=== PATIENT | male | born 1965 | race Hispanic/Latino ===

== ENCOUNTER 2021-03-07 17:01 | Emergency (ER) | payer SELFPAY ==
[2021-03-07] MEDS ORDERED: Ondansetron 4 MG Tab.DIS PO ONE (17:17)
[2021-03-07] MEDS ORDERED: Acetaminophen/HYDROcodone 325-5 MG Tab PO ONE ×2 (17:17→20:16)
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
[2021-03-07] MEDS ORDERED: Sodium Chloride 0.9% 10 ML Syringe FLUSH PRN (18:09)
[2021-03-07] MEDS ORDERED: Morphine 2 MG/ML SYRINGE IVPUSH ONE ×2 (18:49→18:51)
--- NOTE | 2021-03-08 11:22 | CR ---
Chest: Frontal view of the chest was obtained. Comparison: No prior chest x-ray is available. Heart size and mediastinum are within normal limits. Lungs are clear. Slight degenerative spurring is seen within the spine. No definite acute osseous abnormality is appreciated. Impression: 1. Nothing acute is seen on frontal chest x-ray. Diagnostic code #2
--- NOTE | 2021-03-08 11:40 | CT ---
Head CT Technique: Multiple axial sections through the brain were obtained. Reconstructed coronal and sagittal images were obtained. Comparison: No prior intracranial imaging is available. Findings: Large soft tissue hematoma is seen anteriorly. Mild mucosal thickening is seen within both maxillary sinuses. Ventricles along with basal cisterns and sulci over the convexities are within normal limits. No abnormal parenchymal densities are seen with no hemorrhage. No evidence of intracranial hemorrhage is seen. No midline shift or mass-effect is seen. Bone window settings were reviewed. No acute calvarial abnormality is seen. Visualized mastoid sinuses are clear. Impression: 1. Prominent soft tissue hematoma within the anterior scalp. 2. No acute intracranial abnormality is seen. Diagnostic code #2 I agree with preliminary report from [facility], finalized on 03/07/21, 6:59 PM HEMATOLOGY SUPERVISOR
--- NOTE | 2021-03-08 11:46 | CT ---
CT cervical spine Technique: Multiple axial sections through the cervical spine were obtained. Reconstructed coronal and sagittal images were obtained. Comparison: No prior cervical spine imaging is available. Findings: Fracture is seen within the dens of C2. There is mild displacement in an anterior to posterior direction measuring approximately 3.2 mm. Mild anterior soft tissue swelling is noted as well as increased density posterior to the fracture line compatible with mild amount of blood. Detached bony density is noted off the superior dens of C1 which is a normal variant. Moderate to severe disc space narrowing is seen at C3-4, C4-5, C5-6 with fusion at C6-7. Mild degenerative apophyseal change is seen throughout the cervical spine. Moderate bilateral neural foraminal stenosis is seen at C4-5. Moderate bilateral neural foraminal stenosis noted at C5-6. Mild right-sided neural foraminal stenosis is noted at C6-7. No discrete central canal stenosis is seen. No additional fracture is seen. Impression: 1. Mildly displaced fracture involving the dens of C2. Mild amount of blood is seen posteriorly. Anterior soft tissue swelling is noted. 2. Degenerative change as noted above. Diagnostic code #5 I agree with preliminary report from [facility], finalized on 03/07/21, 6:49 PM PHYSICAL MEDICINE PHYSICIAN, code 1
== END 2021-03-07 21:20 ==
LOC: JD.ED 17:01
DX: S12.101A Unspecified nondisplaced fracture of second cervical vertebra, initial encounter for closed fracture (principal); S00.03XA Contusion of scalp, initial encounter; Z20.822 Contact with and (suspected) exposure to COVID-19; Z72.0 Tobacco use; V59.9XXA Occupant (driver) (passenger) of pick-up truck or van injured in unspecified traffic accident, initial encounter; Y92.410 Unspecified street and highway as the place of occurrence of the external cause
CPT/HCPCS: 36415; 70450; 71045; 72125; 85025; 87635; 96374; 96376; 99285; A9270; J2270; U0002

== ENCOUNTER 2022-08-23 10:04 | Emergency (ER) | payer SELFPAY ==
[2022-08-23] MEDS ORDERED: Sodium Chloride 0.9% 10 ML Syringe FLUSH PRN (11:10)
[2022-08-23] MEDS ORDERED: Sodium Chloride 0.9% 1,000 ML IV SCH (11:15)
[2022-08-23 13:19] LABS: BASOPHILS ABSOLUTE AUTO 0.02 K/mm3 (0.01-0.08); BASOPHILS PERCENT AUTO 0.2 % (0.1-1.2); EOSINOPHILS ABSOLUTE AUTO 0.04 K/mm3 (0.04-0.54); EOSINOPHILS PERCENT AUTO 0.5 (0.8-7.0); HEMATOCRIT 40.7 % (40.1-51.0); HEMOGLOBIN 13.6 gm/dl (13.7-17.5); IMMATURE GRAN ABSOLUTE AUTO 0.01 K/mm3 (0.00-0.10); IMMATURE GRAN PERCENT AUTO 0.1 % (<=1.0); LYMPHOCYTES ABSOLUTE AUTO 1.86 K/mm3 (1.32-3.57); MEAN CORPUSCULAR HEMOGLOBIN 31.6 pg (25.7-32.2); MEAN CORPUSCULAR HGB CONC 33.4 g/dl (32.2-35.5); MEAN CORPUSCULAR VOLUME 94.7 fl (79.0-92.2); MEAN PLATELET VOLUME 10.4 fl (9.4-12.3); MONOCYTES ABSOLUTE AUTO 0.47 K/mm3 (0.30-0.82); MONOCYTES PERCENT AUTO 5.8 % (5.3-12.2); NEUTROPHILS PERCENT AUTO 70.4 % (34.0-67.9); PLATELET COUNT,PLT 142 K/mm3 (163-337)
[2022-08-23 13:47] LABS: ALBUMIN 3.6 g/dl (3.4-5.0); ANION GAP 12.4 (5-15); BILIRUBIN TOTAL 0.4 mg/dL (0.2-1.0); BUN/CREATININE RATIO 18.9 (14-18); CALCIUM 8.4 mg/dL (8.5-10.1); CREATININE 0.9 mg/dL (0.7-1.3); EST CRCL DRUG DOSING (CG) 94.08 mL/min; MAGNESIUM 1.4 mg/dL (1.8-2.4); POTASSIUM,K 4.4 mEq/L (3.5-5.1); PROTEIN TOTAL,TP 7.3 g/dl (6.4-8.2)
== END 2022-08-23 14:50 | disposition home or self-care (01) ==
LOC: JD.ED 10:04
DX: R42 Dizziness and giddiness (principal); Z72.0 Tobacco use
CPT/HCPCS: 36415; 70450; 71045; 80053; 83735; 84484; 85025; 93005; 96360; 99284; J3490; J7030; 93010

== ENCOUNTER 2025-01-07 17:25 | Emergency (ER) | payer SELFPAY ==
[2025-01-07 18:35] LABS: BASOPHILS ABSOLUTE AUTO 0.1 K/mm3 (0.0-0.2); BASOPHILS PERCENT AUTO 1.1 % (0.0-1.0); EOSINOPHILS ABSOLUTE AUTO 0.0 K/mm3 (0.0-0.4); EOSINOPHILS PERCENT AUTO 0.4 % (0.0-6.0); IMMATURE GRAN ABSOLUTE AUTO 0.02 K/mm3 (0.00-0.05); IMMATURE GRAN PERCENT AUTO 0.3 % (0.0-0.4); LYMPHOCYTES ABSOLUTE AUTO 2.7 K/mm3 (1.0-4.8); LYMPHOCYTES PERCENT AUTO 39.1 % (24.0-44.0); MEAN PLATELET VOLUME 10.4 fl (9.4-12.4); MONOCYTES ABSOLUTE AUTO 0.4 K/mm3 (0.0-0.8); MONOCYTES PERCENT AUTO 5.6 % (0.0-8.0); NEUTROPHILS ABSOLUTE AUTO 3.7 K/mm3 (1.8-7.7); NEUTROPHILS PERCENT AUTO 53.5 % (41.0-71.0); NRBC ABSOLUTE 0.00 (0.00-0.02); NRBC PERCENT 0.0 % (0.0-0.2); PLATELET COUNT,PLT 154 K/mm3 (150-400); RED BLOOD CELL COUNT 3.94 M/mm3 (4.52-5.90); WHITE BLOOD CELL COUNT,WBC 6.98 K/mm3 (3.9-11.3)
[2025-01-07 19:09] LABS: A/G RATIO 0.8 (1-2); ALANINE AMINOTRANSFERASE,ALT 100.0 U/L (16-63); ASPARTATE AMNIOTRANSFERASE,AST 148.0 U/L (15-37); BILIRUBIN TOTAL 0.5 mg/dL (0.2-1.0); BLOOD UREA NITROGEN,BUN 13.0 mg/dL (7-18); CARBON DIOXIDE,CO2 26.0 mEq/L (21-32); CHLORIDE,CL 107.0 mEq/L (98-107); CREATININE 1.1 mg/dL (0.7-1.3); EST CRCL DRUG DOSING (CG) 74.66 mL/min; ESTIMATED GFR 77.0 mL/min (>60); ETHANOL BLOOD MEDICAL 0.34 gm% (0.00); GLUCOSE RANDOM 153.0 mg/dL (70-99); POTASSIUM,K 3.8 mEq/L (3.5-5.1); PROTEIN TOTAL,TP 7.5 g/dl (6.4-8.2); SODIUM,NA 145.0 mEq/L (136-145); TSH 1.958 uIU/mL (0.358-3.74)
[2025-01-07 19:35] LABS: METHADONE SCREEN, URINE NEGATIVE (CUT0FF=200); METHAMPHETAMINES SCREEN, URINE NEGATIVE (CUTOFF=500); OXYCODONE SCREEN,URINE NEGATIVE (CUT0FF=100); THC SCREEN,URINE 20 NG/ML NEGATIVE (CUTOFF=50)
[2025-01-07 19:51] LABS: BUPRENORPHINE SCREEN,URINE NEGATIVE (CUTOFF=10)
[2025-01-07 19:54] LABS: AMPHETAMINES SCREEN, URINE NEGATIVE (CUTOFF=500)
[2025-01-07] MEDS ORDERED: Sodium Chloride 0.9% 10 ML Syringe FLUSH PRN (20:37)
[2025-01-07] MEDS: LORazepam 2 MG/ML SDV IVPUSH ONE ×2 (21:01→22:28)
[2025-01-07] MEDS: Ondansetron 4 MG/2 ML SDV IVPUSH ONE (21:07)
== END 2025-01-08 02:59 ==
LOC: JD.ED 17:25
DX: F10.129 Alcohol abuse with intoxication, unspecified (principal); S00.31XA Abrasion of nose, initial encounter; E11.9 Type 2 diabetes mellitus without complications; F17.200 Nicotine dependence, unspecified, uncomplicated; W10.9XXA Fall (on) (from) unspecified stairs and steps, initial encounter
CPT/HCPCS: 36415; 70450; 72125; 80053; 80143; 80179; 80306; 80307; 84443; 85025; 93005; 96361; 96374; 96375; 96376; 99285; J2060; J2405; J7030; 99283